=== PATIENT | male | born 1995 | race Two or more races ===

== ENCOUNTER 2020-11-01 16:24 | Emergency (ER) | payer OTHER ==
[~2020-11-01] VITALS: Ht 172.7 cm; Wt 79.4 kg
[~2020-11-01 16:24] MED LIST: CONCERTA18 MG/BOTT
[2020-11-01] MEDS ORDERED: DICLOFENAC SODI75 MG PO (17:35)
== END 2020-11-01 17:45 | disposition home or self-care (01) ==
LOC: ER 16:24
DX: S30.0XXA Contusion of lower back and pelvis, initial encounter (principal); W18.09XA Striking against other object with subsequent fall, initial encounter; Y93.89 Activity, other specified; Y92.832 Beach as the place of occurrence of the external cause; Y99.8 Other external cause status